=== PATIENT | male | born 1960 | race Caucasian/White ===

== ENCOUNTER → 2017-02-25 | Outpatient (REF) ==
[~2017-02-25] MED LIST: ASPI81TA83 OR; DEPA250T2 OR; LISI20TA5 OR; NASAL SPRAY; OMEP20TA7 OR; PLAV75TA2 OR; Zocor PO
--- NOTE | 2017-02-26 03:24 | REP ---
Clinical: Pain and disability. Technique: AP, lateral, bilateral oblique and sunrise views of the right knee. Findings: Early moderate osteoarthritic degenerative changes are appreciated. Findings include increase sclerosis to the tibial plateau and posterior margin of the patella with associated tibiofemoral and patellofemoral joint space narrowing. Spurring and cortical irregularity also identified involving the patella and femoral condyles as well as trace chondrocalcinosis in the tibiofemoral joint space. No acute fracture dislocation. No effusion. Impression: Moderate osteoarthritic degenerative changes. Signed by Virgilio Wayne MD 02/26/2017 03:15 A
== END ==
LOC: M SMT 11:44
PROVIDERS: ATTEND Internal Medicine
DX: Z02.71 Encounter for disability determination (principal)

== ENCOUNTER → 2017-09-16 | Outpatient (REF) | LOC: M SMT 10:20 | DX: M50.320 Other cervical disc degeneration, mid-cervical region, unspecified level (principal); M50.321 Other cervical disc degeneration at C4-C5 level; M50.322 Other cervical disc degeneration at C5-C6 level; M50.323 Other cervical disc degeneration at C6-C7 level; M25.78 Osteophyte, vertebrae ==

== ENCOUNTER 2019-04-29 12:11 | Observation (INO) | payer OTHER ==
[~2019-04-29] VITALS: Ht 185.4 cm; Wt 107.4 kg
[2019-04-29] MEDS ORDERED: NS 1,000 ML IV ONE (15:30)
[2019-04-29 15:35] LABS: HEMOGLOBIN 14.2 g/dl (13.5-17.5); MEAN CORPUSCULAR HGB CONC 33.8 g/dl (32.0-36.5); MEAN CORPUSCULAR VOLUME 82.7 fl (80.0-96.0); PLATELET COUNT, AUTOMATED 236 10^3/uL (150-450); RED BLOOD COUNT 5.08 10^6/uL (4.30-6.10); WHITE BLOOD COUNT 11.5 10^3/uL (4.0-10.0)
[2019-04-29] MEDS ORDERED: POTASSIUM CHLORIDE 10 MEQ SR TABLET PO ONE (16:00)
[2019-04-29] MEDS ORDERED: oxyBUTYnin 5 MG TAB PO ONE (16:15)
[2019-04-29] MEDS ORDERED: CIPROFLOXACIN 400 MG in APPROPRIATE DILUENT 1 EA IV ONE (19:30)
--- NOTE | 2019-04-29 19:32 | HPEPDOC ---
[facility] Medical History & Physical Date of Admission Apr 29, 2019 Date of Service: Apr 29, 2019 Other Provider Jose Multani - BOB Attending Physician: EDILBERTO LITTLE MD History and Physical Time of service 10:30 PM CHIEF COMPLAINT: Difficulty urinating HISTORY OF PRESENT ILLNESS: Mr. Boucher is a 58-year-old male with a history of BPH; he has been having difficulties urinating the sensation of having to urinate that is "off and on" with fluctuation in the strength of the stream of urine. He has been seeing his providers at the in [facility] and was started on tamsulosin and had a Rainey was placed. The Rainey was very uncomfortable and causing chafing so he asked for the rainey to be removed 2 days ago. Since then been having severe abdominal pain and difficulties urinating. He is scheduled to see a urologist in May. Today, he was on his way to [place] but stopped here at [facility] because he had severe abdominal pain and distention. The patient denied having nausea. In addition to abdominal pain he had a bout of diarrhea yesterday, but denies having back pain, fevers or chills. Per discussion with the provider in the ED, a, catheter placed and more than 1 L of urine was drained. Dr. Mayo a urologist food preparation worker was consulted and he recommended recommended admission. He received IV fluids in the ED. REVIEW OF SYSTEMS: 12 point review of systems negative except as listed in HPI PAST MEDICAL/SURGICAL HISTORY: 1. Transverse myelitis of the cervical spine 2. Diabetes with neuropathy 3. TIAs. 4. BPH 5. Chronic hypertension. 6. GERD 7. Transaminitis likely due to fatty liver. 8. Plaque psoriasis SOCIAL HISTORY: Former Smoker FAMILY HISTORY: Cancer ALLERGIES: Please see below. HOME MEDICATIONS: Please see below. PHYSICAL EXAMINATION: VITAL SIGNS: See below. GENERAL APPEARANCE: Well-nourished, well-developed, not in apparent distress HEENT: Normocephalic, atraumatic, mucous members moist and pink CARDIOVASCULAR: Regular rate and rhythm, no murmurs, rubs or gallops, radial pulses are intact, no lower extremity edema LUNGS: Clear to auscultation bilaterally on room air ABDOMEN: Abdomen is soft and nontender on palpation, there is no CVA tenderness MUSCULOSKELETAL: Range of motion is intact in all 4 extremities INTEGUMENT: He is slightly flushed, but not diaphoretic NEUROLOGICAL: Cranial nerves II-12 are grossly intact, speech is not dysarthric PSYCHIATRIC: Alert and oriented to person, place and time, able to understand and follow commands LABORATORY DATA: See below. IMAGING: N/A MICROBIOLOGY: Please see below. ASSESSMENT: Mr. Boucher is a 58-year-old male with a past medical history of BPH, diabetes with neuropathy, TIAs, chronic hypertension, and GERD who will be admitted for management of obstructive uropathy and sepsis secondary to UTI. . PLAN: 1 Sepsis 2/2 UTI SIRS criteria include HR 116 / WBC 11.5 / RR 24 lactic acid 2.6 Qsofa Score = 1 = not high risk UA reviewed Plan: admit to PCU / Sepsis protocol w repeat lactic acid / c/w Ciprofloxacin / f/u blood cx, UA w Cx / f/u renal panel / Zofan for n/v 2. Electrolyte Disturbances likely 2/2 Obstructive Uropathy Plan: c/w rainey from ED and lidocaine cream for rainey related discomfort / Urology Consult / tamsulosin / replete K / f/u repeat K and Mag / 3 Hypertensive Urgency Uncontrolled BP partially due to pain Plan: resume home meds / PRN Labetalol 4 Diabetes with neuropathy Plan: f/u accuchecks & A1C / hypoglycemia protocol / sliding scale / Levemir 45 units daily, 70-30 17 units in the morning and 30 units at night / hold metformin 5. Hx of TIAs. Plan: Continue with home meds 6. Plaque psoriasis. Plan: Continue with home meds DVT prophylaxis with Heparin Disposition pending clinical course Vital Signs Vital Signs Date Time Temp Pulse Resp B/P (MAP) Pulse Ox O2 Delivery O2 Flow Rate FiO2 04/29/19 13:25 04/29/19 12:11 98.7 116 24 98 Room Air Laboratory Data Labs 24H Laboratory Tests 2 04/29/19 13:09: Nucleated Red Blood Cells % (auto) 0.0, Urine Color STRAW, Urine Appearance CLEAR, Urine pH 7.0, Urine Specific [place] 1.001L, Urine Protein 1+H, Urine Glucose (UA) NEGATIVE, Urine Ketones NEGATIVE, Urine Blood 1+H, Urine Nitrite NEGATIVE, Urine Bilirubin NEGATIVE, Urine Urobilinogen 0.2, Urine Leukocyte Est erase 3+H, Urine WBC (Auto) 16H, Urine RBC (Auto) 0, Urine Hyaline Casts (Auto) 0, Urine Bacteria (Auto) NEGATIVE, Urine Squamous Epithelial Cells 0, Urine Sperm (Auto) 04/29/19 13:24: POC Glucose (Misc Panel) 185H, POC Sodium (Misc Panel) 128L, POC Potassium (Misc Panel) 2.6*L, POC Chloride (Misc Panel) 83L, POC Total CO2 (Misc Panel) 27.0, POC Blood Urea Nitrogen (Misc Panel 5L, POC Ionized Calcium (Misc Panel) 3.8L, POC Creatinine (Misc Panel) 0.8, POC Hematocrit (Misc Panel) 58.0H 04/29/19 15:42: Lactic Acid Level 2.5*H CBC/BMP Laboratory Tests 04/29/19 13:09 Red Blood Count 5.08, Mean Corpuscular Volume 82.7, Mean Corpuscular Hemoglobin 28.0, Mean Corpuscular Hemoglobin Concent 33.8, Red Cell Distribution Width 13.3 Microbiology Microbiology 04/29/19 Urine Culture, Received Pending Home Medications Scheduled Atorvastatin Calcium (Atorvastatin Calcium) 80 Mg Tablet, 80 MG PO DAILY Calcipotriene (Calcipotriene) 0.005% Cream..g., 1 APLCT TOP BID Chlorthalidone (Chlorthalidone) 25 Mg Tablet, 25 MG PO DAILY Insulin Detemir (Levemir) 100 Unit/1 Ml Vial, 45 UNITS SC DAILY Insulin NPH Hum/Reg Insulin Hm (Novolin 70-30 100 Unit/ml Vial) 100 Unit/1 Ml Vial, 30 UNITS SC QAM Insulin NPH Hum/Reg Insulin Hm (Novolin 70-30 100 Unit/ml Vial) 100 Unit/1 Ml Vial, 17 UNITS SC QPM Isotretinoin (Absorica) 25 Mg Capsule, 25 MG PO DAILY for PSORIASIS Levofloxacin (Levaquin) 500 Mg Tablet, 500 MG PO DAILY Magnesium Oxide (Magnesium Oxide) 400 Mg Tablet, 400 MG PO BID Metformin HCl (Metformin HCl) 1,000 Mg Tablet, 1,000 MG PO BID Metoprolol Tartrate (Metoprolol Tartrate) 25 Mg Tablet, 25 MG PO BID PHARMACY WAITING ON NEW RX FROM MD TO REFILL; HAS NOT FILLED FOR PT IN A WEEK, BUT IT IS STILL AN ACTIVE MEDICATION FOR PATIENT Omeprazole (Omeprazole) 20 Mg Capsule., 20 MG PO DAILY Potassium Chloride (Potassium Chloride) 10 Meq Tab.er.prt, 10 MEQ PO DAILY Tamsulosin HCl (Flomax) 0.4 Mg Capsule, 0.4 MG PO DAILY MIDDAY; HALF-HOUR AFTER LUNCH Scheduled PRN Ibuprofen (Ibuprofen) 200 Mg Tablet, 800 MG PO TID PRN for PAIN Allergies Coded Allergies: No Known Allergies (Verified , 12/04/11) A-FIB/CHADSVASC A-FIB History Current/History of A-Fib/PAF?: No Current PO Anticoag Therapy: No EDILBERTO LITTLE MD Apr 29, 2019 19:32
[2019-04-29] MEDS ORDERED: ONDANSETRON 4MG/2ML VIAL (J2405) IV PRN (19:45)
[2019-04-29] MEDS ORDERED: LABETALOL HCL 100 MG/20 ML VIAL IV PRN (19:45)
[2019-04-29] MEDS ORDERED: DEXTROSE 50% 50 ML SYRINGE IV PRN (19:45)
[2019-04-29] MEDS ORDERED: SODIUM CHLORIDE 0.9% 1000ML IV SCH (19:45)
[2019-04-29] MEDS ORDERED: METF10004 PO (19:51)
[2019-04-29] MEDS ORDERED: [UNRECOGNIZED DRUG - CODE] PO (19:51)
[2019-04-29] MEDS ORDERED: CHLO25TA PO (19:51)
[2019-04-29] MEDS ORDERED: OMEP-218 PO (19:51)
[2019-04-29] MEDS ORDERED: FLOM0.4C39 PO (19:51)
[2019-04-29] MEDS ORDERED: ATOR80TA59 PO (19:51)
[2019-04-29] MEDS ORDERED: METO25TA4 PO (19:51)
[2019-04-29] MEDS ORDERED: INSUDET SC (19:51)
[2019-04-29] MEDS ORDERED: ASPI81TA85 PO (19:51)
[2019-04-29] MEDS ORDERED: NOVO1INJ4 SC ×2 (19:51)
[2019-04-29] MEDS ORDERED: CALC0.009 TOP (19:51)
[2019-04-29] MEDS ORDERED: POTA10TA17 PO (19:51)
[2019-04-29] MEDS ORDERED: IBUP-1092 PO (20:07)
[2019-04-29] MEDS: HumaLOG INSULIN (NovoLOG) PER UNIT SC SCH (21:00)
[2019-04-29] MEDS ORDERED: KCL 10MEQ/100ML SWI (KRUN) 10 MEQ in APPROPRIATE DILUENT 1 EA IV ONE (21:00)
[2019-04-29 21:56] VITALS: BP 177/86
[2019-04-29] MEDS: HEPARIN SOD (PORCINE) 5000 UNITS/ML VIAL SC SCH (22:16)
[2019-04-29] MEDS ORDERED: diphenhydrAMINE 25 MG CAP PO ONE (22:45)
[2019-04-29] MEDS ORDERED: LIDOCAINE 2% JELLY 30 ML TOP PRN (22:45)
[2019-04-29 23:00] VITALS: BP 157/87
[2019-04-29 23:15] VITALS: BP 167/92
[2019-04-29 23:30] VITALS: BP 165/94
[2019-04-29 23:45] VITALS: BP 168/91
[2019-04-29 23:48] LABS: BLOOD UREA NITROGEN 7 MG/DL (7-18); CALCIUM LEVEL 8.6 MG/DL (8.8-10.2); CARBON DIOXIDE LEVEL 36 MEQ/L (21-32); CHLORIDE LEVEL 93 MEQ/L (98-107); CREATININE FOR GFR 1.04 MG/DL (0.70-1.30); GLOMERULAR FILTRATION RATE > 60.0 (>49); GLUCOSE, FASTING 176 MG/DL (70-100); POTASSIUM SERUM 2.9 MEQ/L (3.5-5.1); SODIUM LEVEL 134 MEQ/L (136-145)
[2019-04-30] VITALS (17 sets, daily range): BP systolic 137–171; BP diastolic 77–101
[2019-04-30] MEDS ORDERED: POTASSIUM CHLORIDE 10% LIQ 20 MEQ/15 ML UDC PO ONE (02:30)
[2019-04-30 05:10] LABS: HEMATOCRIT 40.5 % (42.0-52.0); HEMOGLOBIN 13.7 g/dl (13.5-17.5); MEAN CORPUSCULAR HEMOGLOBIN 27.3 pg (27.0-33.0); MEAN CORPUSCULAR HGB CONC 33.8 g/dl (32.0-36.5); MEAN CORPUSCULAR VOLUME 80.8 fl (80.0-96.0); PLATELET COUNT, AUTOMATED 266 10^3/uL (150-450); RED BLOOD COUNT 5.01 10^6/uL (4.30-6.10); WHITE BLOOD COUNT 12.7 10^3/uL (4.0-10.0)
[2019-04-30] MEDS: HEPARIN SOD (PORCINE) 5000 UNITS/ML VIAL SC SCH ×3 (05:18→21:47)
[2019-04-30] MEDS: IBUPROFEN 800 MG TAB PO PRN (05:18)
[2019-04-30 05:27] LABS: BLOOD UREA NITROGEN 6 MG/DL (7-18); CARBON DIOXIDE LEVEL 35 MEQ/L (21-32); CHLORIDE LEVEL 93 MEQ/L (98-107); CREATININE FOR GFR 1.05 MG/DL (0.70-1.30); GLOMERULAR FILTRATION RATE > 60.0 (>49); GLUCOSE, FASTING 199 MG/DL (70-100); MAGNESIUM LEVEL 1.4 MG/DL (1.8-2.4); SODIUM LEVEL 135 MEQ/L (136-145)
[2019-04-30] MEDS ORDERED: ISOTRETINOIN PO SCH (09:00)
[2019-04-30] MEDS: ATORVASTATIN 20 MG TAB PO SCH (09:45)
[2019-04-30] MEDS: PANTOPRAZOLE 40MG TAB (PROTONIX) PO SCH (09:45)
[2019-04-30] MEDS: LEVEMIR (INSULIN DETEMIR) 1 UNITS/0.01ML SC SCH (09:45)
[2019-04-30] MEDS: METOPROLOL TART 25 MG TABLET PO SCH ×2 (09:46→21:48)
[2019-04-30] MEDS: CHLORTHALIDONE 25 MG TAB PO SCH (09:46)
[2019-04-30] MEDS: CALCIPOTRIENE CREAM 0.005% 60GM TOP SCH ×2 (09:47→21:49)
[2019-04-30] MEDS: HumaLOG INSULIN (NovoLOG) PER UNIT SC SCH ×4 (09:47→21:00)
[2019-04-30] MEDS: HumuLIN (NovoLIN)70/30 INSULIN INJ PER UNIT SC SCH (09:48)
--- NOTE | 2019-04-30 11:18 | IPNPDOC ---
Subjective Date Seen The patient was seen on 04/30/19. Subjective Chief Complaint/HPI feels much better. Offers no new complaints at present time lying down in bed. Family at bedside General: Denies: ROS Unobtainable, Chills, Night Sweats, Fatigue, Malaise, Normal Appetite, Other Symptoms Constitutional: Denies: Chills, Fever, Malaise, Night Sweats, Weakness, Fatigue, Weight Loss, Lethargy, Other Eyes: Denies: Pain, Vision change, Conjunctivae inflammation, Eyelid inflammation, Redness, Other ENT: Denies: Head Aches, Ear Pain, Dysphagia, Sinus Congestion, Post Nasal Drip, Sore Throat, Epistaxis, Other Symptoms Skin: Denies: Rash, Lesions, Jaundice, Bruising, Itching, Dry, Breakdown, Nail Changes, Other Pulmonary: Denies: Dyspnea, Cough, Pleuritic Chest Pain, Other Symptoms Cardiovascular: Denies: Chest Pain, Palpitations, Orthopnea, Paroxysmal Noc. Dyspnea, Edema, Lt Headedness, Other Symptoms Gastrointestinal: Denies: Nausea, Vomiting, Abdominal Pain, Diarrhea, Constipation, Melena, Hematochezia, Other Symptoms Genitourinary: Denies: Dysuria, Frequency, Incontinence, Hematuria, Retention, Other Symptoms Hematologic: Denies: Bruising, Bleeding Excessively, Petecchia, Purpura, Enlarged Lymph Nodes, Other Hematologic Endocrine: Denies: Polydipsia, Polyphagia, Polyuria, Heat Intolerance, Cold Intolerance, Other Endocrine Sx Musculoskeletal: Denies: Neck Pain, Back Pain, Shoulder Pain, Arm Pain, Hand Pain, Leg Pain, Foot Pain, Joint Pain, Muscle Pain, Spasms, Other Symptoms Neurological: Denies: Weakness, Numbness, Incoordination, Change in speech, Confusion, Seizures, Other Symptoms Psych: Denies: Mood Normal, Anxiety, Depression, Memory Issues, Thoughts of Self Harm, Anger, Thoughts of Harming Other, Other Psych Objective Physical Examination General Exam: Positive: Alert, Cooperative Eye Exam: Positive: PERRLA, Conjunctiva & lids normal ENT Exam: Positive: Atraumatic Neck Exam: Positive: Supple Chest Exam: Positive: Clear to auscultation, Normal air movement Heart Exam: Positive: Rate Normal, Normal S1, Normal S2 Abdomen Exam: Positive: Normal bowel sounds, Soft Extremity Exam: Positive: Normal pulses Skin Exam: Positive: Nl turgor and temperature Neuro Exam: Positive: Strength at 5/5 X4 ext, Sensation Intact Assessment /Plan Problems (1) UTI (urinary tract infection) Problem Text: Mr. Boucher is a 58-year-old male with a history of BPH he has been having difficulties urinating the sensation of having to urinate that is "off and on" with fluctuation in the strength of the stream of urine. He has been seeing his providers at the in [facility] and was started on tamsulosin and a Crain was placed. The Crain was very uncomfortable and causing chafing so he asked for the Crain to be removed 2 days ago. Since then been having severe abdominal pain and difficulties urinating. He is scheduled to see a urologist in May. Today, he was on his way to [place] but stopped here at [facility] because he had severe abdominal pain and distention. The patient denied having nausea. In addition to abdominal pain he had a bout of diarrhea yesterday, but denies having back pain, fevers or chills. Per discussion with the provider in the ED, a, catheter placed and more than 1 L of urine was drained. Dr. Mayo a urologist party plan sales consultant was consulted and he recommended recommended admission. He received IV fluids in the ED. Urology consultation is still pending Continue Crain Continue Cipro IV as per orders Urine cultures pending Further, as per urology's recommendations (2) Urinary retention Status: Acute Problem Text: Crain in place Further, as per urology recommendations (3) Hypokalemia Status: Acute Problem Text: Corrected . We'll repeat lab and take potassium as needed Plan/VTE VTE Prophylaxis Ordered?: Yes VS, I&O, 24H, Fishbone Vital Signs/I&O Vital Signs Date Time Temp Pulse Resp B/P (MAP) Pulse Ox O2 Delivery O2 Flow Rate FiO2 04/30/19 10:00 82 20 137/77 (97) 94 04/30/19 08:00 97.4 04/29/19 12:11 Room Air I&O- Last 24 Hours up to 6 AM 04/30/19 05:59 Intake Total 1700 ml Output Total 5200 ml Balance -3500 ml Laboratory Data 24H LABS Laboratory Tests 2 04/29/19 13:09: Nucleated Red Blood Cells % (auto) 0.0, Urine Color STRAW, Urine Appearance CLEAR, Urine pH 7.0, Urine Specific [place] 1.001L, Urine Protein 1+H, Urine Glucose (UA) NEGATIVE, Urine Ketones NEGATIVE, Urine Blood 1+H, Urine Nitrite NEGATIVE, Urine Bilirubin NEGATIVE, Urine Urobilinogen 0.2, Urine Leukocyte E sterase 3+H, Urine WBC (Auto) 16H, Urine RBC (Auto) 0, Urine Hyaline Casts (Auto) 0, Urine Bacteria (Auto) NEGATIVE, Urine Squamous Epithelial Cells 0, Urine Sperm (Auto) 04/29/19 13:24: POC Glucose (Misc Panel) 185H, POC Sodium (Misc Panel) 128L, POC Potassium (Misc Panel) 2.6*L, POC Chloride (Misc Panel) 83L, POC Total CO2 (Misc Panel) 27.0, POC Blood Urea Nitrogen (Misc Panel 5L, POC Ionized Calcium (Misc Panel) 3.8L, POC Creatinine (Misc Panel) 0.8, POC Hematocrit (Misc Panel) 58.0H 04/29/19 15:42: Lactic Acid Level 2.5*H 04/29/19 20:12: Lactic Acid Followup at 4 Hours 2.6*H 04/29/19 21:57: Bedside Glucose (Misc Panel) 226H 04/29/19 23:00: Anion Gap 5L, Glomerular Filtration Rate > 60.0, Lactic Acid Level 1.7, Blood Urea Nitrogen 7, Creatinine 1.04, Sodium Level 134L, Potassium Level 2.9*L, Chloride Level 93L, Carbon Dioxide Level 36H, Calcium Level 8.6L 04/30/19 04:44: Anion Gap 7L, Glomerular Filtration Rate > 60.0, Blood Urea Nitrogen 6L, Creatinine 1.05, Sodium Level 135L, Potassium Level 3.0L, Chloride Level 93L, Carbon Dioxide Level 35H, Calcium Level 9.0, Nucleated Red Blood Cells % (auto) 0.0, Estimated Mean Plasma Glucose 240H, Hemoglobin A1c 10.0, Magnesium Level 1.4L CBC/BMP Laboratory Tests 04/29/19 13:09 Red Blood Count 5.08, Mean Corpuscular Volume 82.7, Mean Corpuscular Hemoglobin 28.0, Mean Corpuscular Hemoglobin Concent 33.8, Red Cell Distribution Width 13.3 04/29/19 23:00 Calcium Level 8.6 L 04/30/19 04:44 Red Blood Count 5.01, Mean Corpuscular Volume 80.8, Mean Corpuscular Hemoglobin 27.3, Mean Corpuscular Hemoglobin Concent 33.8, Red Cell Distribution Width 13.7, Calcium Level 9.0 Microbiology Microbiology 04/29/19 Blood Culture, Received Pending 04/29/19 Urine Culture, Received Pending PATRICIA HAIR MD Apr 30, 2019 11:18
[2019-04-30] MEDS ORDERED: POTASSIUM CHLORIDE 10 MEQ SR TABLET PO ONE (12:00)
[2019-04-30] MEDS ORDERED: MAG SULF 1GM/100ML (MAG RUN) 1 GM in APPROPRIATE DILUENT 1 EA IV ONE (12:00)
--- NOTE | 2019-04-30 16:17 | ECGEPIP ---
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
--- NOTE | 2019-04-30 16:23 | SMCUROLCON ---
Urology Consultation General Date of Consultation 04/30/19 Reason For Consultation This patient is seen for Sepsis; Uti. History of Present Illness The patient is a 58-year-old male with a past medical history significant for BPH and history of urinary retention. Mr. Boucher reports that his urinary symptoms first started in the last year. He reports that he was down in [place] and started having what sounds like obstructive urinary symptoms typical of BPH. He reports that he was started on tamsulosin at that time and that he did notice some possible mild improvement in his urinary symptoms. However as time went on he did not think the medication was having much effect and so he discontinued it. [facility] and his obstructive urinary symptoms worsened significantly. Eventually he went into enoch urinary retention and went to the [facility] where an indwelling Rainey catheter was placed. He was started back on tamsulosin. He was instructed to follow up in the circumflex dysuria urology clinic that was given an appointment several months later. He reports that he was not tolerating the indwelling catheter well. He went back to the [facility] several days ago the day prior to his scheduled appointment. He reports that they filled his bladder through the catheter and removed the catheter. He reports that he was able to void and that a postvoid residual check demonstrated he had emptied out more than 80% of urine from his bladder. He reports that he was sent home without a Rainey catheter. Unfortunately in the days that followed he reports that his urine stream became weaker and he eventually went back into enoch urinary retention yesterday. He reports he could not make it to [place] given the severity of his symptoms. He came to the [place] emergency department where an indwelling Rainey catheter was placed in the emergency department with reported drainage of approximately 1 L of urine. Laboratory testing demonstrated hypokalemia as well as some other electrolyte abnormalities. He was admitted to the hospitalist service and has been receiving electrolyte repletion. Reports that over the last 24 hours he has generally felt really bad with the constitutional symptoms. He denies any other genitourinary concerns at this time. Medications Current Medications Current Medications Medications (Trade) Dose Ordered Sig/Micki Route PRN Reason Start Time Stop Time Status Last Admin Dose Admin Atorvastatin Calcium (Lipitor) 80 mg DAILY PO 04/30/19 09:00 04/30/19 09:45 Calcipotriene (Dovonex 0.005%) APPLY TO AFFECTED AREA BID TOP 04/30/19 09:00 04/30/19 09:47 Chlorthalidone (Hygroton) 25 mg DAILY PO 04/30/19 09:00 04/30/19 09:46 Ciprofloxacin 400 mg/IV Miscellaneous Supplies 200 ml @ 200 mls/hr Q24H IV 04/30/19 21:00 Dextrose (Dextrose 50%) 25 ml ASDIRECTED PRN IV SEE LABEL COMMENTS 04/29/19 19:45 Heparin Sodium (Porcine) (Heparin) 5,000 units Q8H SC 04/29/19 22:00 04/30/19 14:25 Home Med (Med Rec Complete!) ASDIRECTED XX 04/29/19 20:15 04/29/19 20:15 DC Ibuprofen (Advil) 800 mg TID PRN PO PAIN 04/30/19 04:45 04/30/19 05:18 Insulin Detemir (Levemir Insulin) 45 units DAILY NE 04/30/19 09:00 04/30/19 09:45 Insulin Human Isoph/Insulin Regular (HumuLIN 70/30 INSULIN) 17 units DAILY@1730 NE 04/30/19 17:30 Insulin Human Isoph/Insulin Regular (HumuLIN 70/30 INSULIN) 30 units DAILY@0730 NE 04/30/19 07:30 04/30/19 09:48 Insulin Human Lispro (HumaLOG INSULIN) See Protocol Table AC NE 04/30/19 07:30 04/30/19 12:32 Insulin Human Lispro (HumaLOG INSULIN) See Protocol Table QHS NE 04/29/19 21:00 Labetalol HCl (Normodyne, Trandate) 10 mg DAILY PRN IV SBP >160 04/29/19 19:45 Lidocaine HCl (Lidocaine 2% Jelly) 1 dose Q8HP PRN TOP rainey related discomfort 04/29/19 22:45 04/30/19 03:32 Metoprolol Tartrate (Lopressor) 25 mg BID PO 04/30/19 09:00 04/30/19 09:46 Miscellaneous (Unresolved Patient Own Med Order) SEE LABEL COMMENTS DAILY XX 04/30/19 09:00 Ondansetron HCl (ZOFRAN INJection) 8 mg Q4HP PRN IV NAUSEA OR VOMITING 04/29/19 19:45 Pantoprazole Sodium (Protonix) 40 mg DAILY PO 04/30/19 09:00 04/30/19 09:45 Patient Own Medication (Patient'S Own Med) 1 CAPSULE DAILY PO 04/30/19 09:00 04/30/19 10:05 DC Sodium Chloride (Nacl 0.9%) 3,000 ml BOLUS IV 04/29/19 19:45 04/29/19 19:58 DC Tamsulosin HCl (Flomax) 0.4 mg QHS PO 04/30/19 21:00 Allergies Allergies: Coded Allergies: No Known Allergies (Verified , 12/04/11) Review of Systems General: Reports: Malaise, Normal Appetite Constitutional: Denies: Fever, Chills, Sweats, Weakness, Malaise Eyes: Denies: Pain, Vision change ENT: Denies: Head Aches, Sore Throat, Epistaxis Skin: Denies: Rash, Lesions, Breakdown, Nail Changes Pulmonary: Denies: Dyspnea, Cough Cardiovascular: Denies Chest Pain, Denies Palpitations Gastrointestinal: Denies: Nausea, Vomiting, Abdominal Pain Genitourinary: Reports: Retention Hematologic: Denies: Bruising, Bleeding Excessively Endocrine: Denies: Polydipsia, Polyphagia, Polyuria Musculoskeletal: Denies: Neck Pain, Back Pain Neurological: Denies: Weakness, Numbness, Incoordination, Change in Speech Psych: Reports: Mood Normal; Denies: Anxiety, Depression Physical Examination General Exam: Alert, No Acute Distress EYE EXAM: PERRLA, Conjunctiva & lids normal, EOMI; No: Sclera icteric ENT EXAM: Atraumatic, Mucous membr. moist/pink, Pharynx Normal Neck Exam: Supple; No: JVD, thyromegaly Chest Exam: Clear to auscultation, Normal air movement Heart Exam: Rate Normal, Regular Rhythm, Normal S1, Normal S2; No: Murmurs, Rubs Abdomen Exam: Normal Bowel Sounds, Soft; No: Tenderness, Hepatospenomegaly Male Exam: Normal Genital Exam Male Exam Indwelling 16 hebrew rainey catheter draining clear yellow urine Extremity Exam: Normal Pulses; No: Clubbing, Cyanosis, Edema Skin Exam: Nl turgor and temperature; No: Rash, Breakdown Neuro Exam: Normal Gait, Normal Speech, Cranial Nerves 3-12 NL, Reflexes 2+ Psych Exam: Mental status NL, Mood NL, Oriented x 3 Vital Signs/I&O Vital Signs Date Time Temp Pulse Resp B/P (MAP) Pulse Ox O2 Delivery O2 Flow Rate FiO2 04/30/19 14:35 97.7 82 20 138/82 (100) 95 04/29/19 12:11 Room Air I&O- Last 24 Hours up to 6 AM 04/30/19 06:00 Intake Total 1850 ml Output Total 5500 ml Balance -3650 ml Laboratory Data 24H Labs Laboratory Tests 2 04/29/19 20:12: Lactic Acid Followup at 4 Hours 2.6*H 04/29/19 21:57: Bedside Glucose (Misc Panel) 226H 04/29/19 23:00: Anion Gap 5L, Glomerular Filtration Rate > 60.0, Lactic Acid Level 1.7, Blood Urea Nitrogen 7, Creatinine 1.04, Sodium Level 134L, Potassium Level 2.9*L, Chloride Level 93L, Carbon Dioxide Level 36H, Calcium Level 8.6L 04/30/19 04:44: Anion Gap 7L, Glomerular Filtration Rate > 60.0, Blood Urea Nitrogen 6L, Creatinine 1.05, Sodium Level 135L, Potassium Level 3.0L, Chloride Level 93L, Carbon Dioxide Level 35H, Calcium Level 9.0, Nucleated Red Blood Cells % (auto) 0.0, Estimated Mean Plasma Glucose 240H, Hemoglobin A1c 10.0, Magnesium Level 1.4L 04/30/19 12:22: Bedside Glucose (Misc Panel) 163H CBC/BMP Laboratory Tests 04/29/19 23:00 Calcium Level 8.6 L 04/30/19 04:44 Calcium Level 9.0, Red Blood Count 5.01, Mean Corpuscular Volume 80.8, Mean Corpuscular Hemoglobin 27.3, Mean Corpuscular Hemoglobin Concent 33.8, Red Cell Distribution Width 13.7 Microbiology Microbiology 04/29/19 Blood Culture, Received Pending 04/29/19 Urine Culture, Received Pending Assessment Second episode of acute urinary retention secondary to benign prostatic hypertrophy Plan #1. Patient should certainly be sent home with the indwelling Rainey catheter in place. #2. Patient should continue taking tamsulosin 0.4 mg by mouth at bedtime. #3. Discussed with patient the option of adding on a 5 alpha reductase inhibitor medication. Counseled patient that this may help alleviate his urinary symptoms and allow him to void better and possibly avoid any surgical procedure. However counseled that these medications typically take at least a few months and sometimes up to 6 months to have any effect on symptoms. The patient noted that he really would prefer to avoid additional medications and would likely rather proceed with some form of surgical intervention. #4. Patient should be scheduled to follow-up in [facility] urology clinic in the next week or 2 to discuss surgical options for BPH. JORDYN FIGUEROA MD Apr 30, 2019 16:22
[2019-04-30] MEDS ORDERED: HumuLIN (NovoLIN)70/30 INSULIN INJ PER UNIT SC SCH (17:30)
[2019-04-30] MEDS ORDERED: CIPROFLOXACIN 400 MG in APPROPRIATE DILUENT 1 EA IV SCH (21:00)
[2019-04-30] MEDS ORDERED: TAMSULOSIN 0.4 MG CAP PO SCH (21:00)
[2019-04-30] MEDS ORDERED: diphenhydrAMINE INJ 50MG/ML VIAL (J1200) IM ONE (22:15)
[2019-05-01] MEDS ORDERED: zolPIDEM TARTRATE 5 MG TAB PO ONE (01:30)
[2019-05-01 02:00] VITALS: BP 163/92
[2019-05-01] MEDS: HEPARIN SOD (PORCINE) 5000 UNITS/ML VIAL SC SCH (05:57)
[2019-05-01 06:00] VITALS: BP 167/102
[2019-05-01] MEDS: HumaLOG INSULIN (NovoLOG) PER UNIT SC SCH (08:05)
[2019-05-01] MEDS: HumuLIN (NovoLIN)70/30 INSULIN INJ PER UNIT SC SCH (08:06)
[2019-05-01] MEDS: LEVEMIR (INSULIN DETEMIR) 1 UNITS/0.01ML SC SCH (08:06)
[2019-05-01] MEDS: PANTOPRAZOLE 40MG TAB (PROTONIX) PO SCH (08:07)
[2019-05-01] MEDS: ATORVASTATIN 20 MG TAB PO SCH (08:07)
[2019-05-01] MEDS: CHLORTHALIDONE 25 MG TAB PO SCH (08:07)
[2019-05-01 08:08] VITALS: BP 166/104
[2019-05-01] MEDS: METOPROLOL TART 25 MG TABLET PO SCH (08:08)
[2019-05-01] MEDS: IBUPROFEN 800 MG TAB PO PRN (08:09)
[2019-05-01] MEDS: CALCIPOTRIENE CREAM 0.005% 60GM TOP SCH (08:12)
[2019-05-01] MEDS ORDERED: MAGNESIUM OXIDE 400 MG TAB (MAG-OX) PO SCH (09:00)
[2019-05-01] MEDS ORDERED: LEVA1TAB2 PO (09:34)
[2019-05-01] MEDS ORDERED: MAG400TA PO (09:34)
[2019-05-01 09:45] VITALS: BP 152/94
[2019-05-01] MEDS ORDERED: POTASSIUM CHLORIDE 10 MEQ SR TABLET PO ONE (10:00)
--- NOTE | 2019-05-01 12:27 | DS.PDOC ---
Discharge Summary General Date of Admission Apr 29, 2019 at 12:12 Date of Discharge 05/01/19 Discharge Summary PROCEDURES PERFORMED DURING STAY: None. ADMITTING DIAGNOSES: 1. Obstructive uropathy, UTI, hypertension and emergency, diabetes with peripheral neuropathy. DISCHARGE DIAGNOSES: 1. Obstetric the uropathy. #2. UTI. #3. Hypertension emergency. #4. Diabetes with peripheral neuropathy. COMPLICATIONS/CHIEF COMPLAINT: Sepsis; Uti. HISTORY OF PRESENT ILLNESS: Mr. Boucher is a 58-year-old male with a history of BPH he has been having difficulties urinating the sensation of having to urinate that is "off and on" with fluctuation in the strength of the stream of urine. He has been seeing his providers at the in [facility] and was started on tamsulosin and a Crain was placed. The Crain was very uncomfortable and causing chafing so he asked for the Crain to be removed 2 days ago. Since then been having severe abdominal pain and difficulties urinating. He is scheduled to see a urologist in May. Today, he was on his way to [place] but stopped here at [facility] because he had severe abdominal pain and distention. The patient denied having nausea. In addition to abdominal pain he had a bout of diarrhea yesterday, but denies having back pain, fevers or chills. Per discussion with the provider in the ED, a, catheter placed and more than 1 L of urine was drained. Dr. Mayo a urologist weatherization and housing inspector was consulted and he recommended recommended admission. He received IV fluids in the ED.. HOSPITAL COURSE: Patient was admitted with the diagnosis of obstructive uropathy. UTI. Patient had a Crain placement in ED with the drainage of 1 L of urine. Patient was seen by Dr. Mayo from urology and recommended to continue keep the Crain in treat patient for his UTI and emergent hypertension as once stable, he can be discharged home and follow-up as an outpatient with [facility] urology clinic in 2-3 days. Patient. Blood pressures under well control. He is asymptomatic and he will be discharged home today with the Crain catheter in place and follow with urology as an outpatient. DISCHARGE MEDICATIONS: Please see below. ALLERGIES: Please see below. PHYSICAL EXAMINATION ON DISCHARGE: VITAL SIGNS: Please see below. GENERAL: Normal HEENT: PERRLA NECK: Supple, supple CARDIOVASCULAR EXAMINATION:. S1, S2, regular RESPIRATORY EXAMINATION:, Clear to A&P ABDOMINAL EXAMINATION:. Benign EXTREMITIES:. No clubbing, cyanosis, edema SKIN:, Normal NEUROLOGICAL EXAMINATION:, Normal PSYCHIATRIC EXAMINATION:, Normal LABORATORY DATA: Please see below. IMAGING: None PROGNOSIS: Good ACTIVITY: As tolerated. DIET: As tolerated DISCHARGE PLAN: DC home with a Crain catheter inplace with leg bag DISPOSITION: . Home DISCHARGE INSTRUCTIONS: 1. Follow-up with urology clinic is in 2-3 days. ITEMS TO FOLLOWUP ON ON OUTPATIENT: 1. As above. DISCHARGE CONDITION: Stable. TIME SPENT ON DISCHARGE: 35 minutes. Vital Signs/I&Os Vital Signs Date Time Temp Pulse Resp B/P (MAP) Pulse Ox O2 Delivery O2 Flow Rate FiO2 05/01/19 09:45 96.6 77 16 152/94 (113) 92 04/29/19 12:11 Room Air I&O- Last 24 Hours up to 6 AM 05/01/19 06:00 Intake Total 1750 ml Output Total 2550 ml Balance -800 ml Laboratory Data Labs 24H Laboratory Tests 2 04/30/19 12:22: Bedside Glucose (Misc Panel) 163H 04/30/19 16:44: Bedside Glucose (Misc Panel) 177H 04/30/19 21:20: Bedside Glucose (Misc Panel) 167H 05/01/19 06:11: Bedside Glucose (Misc Panel) 156H 05/01/19 11:43: Bedside Glucose (Misc Panel) 211H FSBS Laboratory Tests Test 04/30/19 12:22 04/30/19 16:44 04/30/19 21:20 05/01/19 06:11 Range/Units Bedside Glucose (Misc Panel) 163 177 167 156 80-115 MG/DL Test 05/01/19 11:43 Range/Units Bedside Glucose (Misc Panel) 211 80-115 MG/DL Microbiology Microbiology 04/29/19 Blood Culture - Preliminary, Resulted No growth after 24 hours . All specim... 04/29/19 Urine Culture - Final, Complete Enterobacter Asburiae Discharge Medications Scheduled Atorvastatin Calcium (Atorvastatin Calcium) 80 Mg Tablet, 80 MG PO DAILY, (Reported) Calcipotriene (Calcipotriene) 0.005% Cream..g., 1 APLCT TOP BID, (Reported) Chlorthalidone (Chlorthalidone) 25 Mg Tablet, 25 MG PO DAILY, (Reported) Insulin Detemir (Levemir) 100 Unit/1 Ml Vial, 45 UNITS SC DAILY, (Reported) Insulin NPH Hum/Reg Insulin Hm (Novolin 70-30 100 Unit/ml Vial) 100 Unit/1 Ml Vial, 30 UNITS SC QAM, (Reported) Insulin NPH Hum/Reg Insulin Hm (Novolin 70-30 100 Unit/ml Vial) 100 Unit/1 Ml Vial, 17 UNITS SC QPM, (Reported) Isotretinoin (Absorica) 25 Mg Capsule, 25 MG PO DAILY for PSORIASIS, (Reported) Levofloxacin (Levaquin) 500 Mg Tablet, 500 MG PO DAILY Magnesium Oxide (Magnesium Oxide) 400 Mg Tablet, 400 MG PO BID Metformin HCl (Metformin HCl) 1,000 Mg Tablet, 1,000 MG PO BID, (Reported) Metoprolol Tartrate (Metoprolol Tartrate) 25 Mg Tablet, 25 MG PO BID, (Reported) PHARMACY WAITING ON NEW RX FROM TO REFILL; HAS NOT FILLED FOR PT IN A WEEK, BUT IT IS STILL AN ACTIVE MEDICATION FOR PATIENT Omeprazole (Omeprazole) 20 Mg Capsule.dr, 20 MG PO DAILY, (Reported) Potassium Chloride (Potassium Chloride) 10 Meq Tab.er.prt, 10 MEQ PO DAILY, (Reported) Tamsulosin HCl (Flomax) 0.4 Mg Capsule, 0.4 MG PO DAILY, (Reported) MIDDAY; HALF-HOUR AFTER LUNCH Scheduled PRN Ibuprofen (Ibuprofen) 200 Mg Tablet, 800 MG PO TID PRN for PAIN, (Reported) Allergies Coded Allergies: No Known Allergies (Verified , 12/04/11) PATRICIA HAIR MD May 01, 2019 12:27
== END 2019-05-01 12:40 | disposition home or self-care (01) ==
LOC: M ED 12:11 → M ED INP 12:12 → M ICU 21:44 → M MSPAV 04-30 14:35
PROVIDERS: ADMIT Internal Medicine; ATTEND Internal Medicine
DX: N13.9 Obstructive and reflux uropathy, unspecified (principal); N39.0 Urinary tract infection, site not specified; I16.0 Hypertensive urgency; E11.40 Type 2 diabetes mellitus with diabetic neuropathy, unspecified; Z79.84 Long term (current) use of oral hypoglycemic drugs; Z79.4 Long term (current) use of insulin; N40.0 Benign prostatic hyperplasia without lower urinary tract symptoms; Z79.899 Other long term (current) drug therapy; Z86.73 Personal history of transient ischemic attack (TIA), and cerebral infarction without residual deficits; K21.9 Gastro-esophageal reflux disease without esophagitis; I10 Essential (primary) hypertension; R74.0 Nonspecific elevation of levels of transaminase and lactic acid dehydrogenase [LDH]; K76.0 Fatty (change of) liver, not elsewhere classified; L40.0 Psoriasis vulgaris; Z87.891 Personal history of nicotine dependence
CPT/HCPCS: 36415; 80047; 80048; 81001; 83036; 83605; 83735; 85027; 87040; 87088; 87186; 93005; 96361; 96365; 96372; 96375; 99284; G0378; J0744; J1200; J3475

== ENCOUNTER 2022-06-22 12:37 | Emergency (ER) | payer OTHER ==
[~2022-06-22] VITALS: Ht 185.4 cm; Wt 113.2 kg
[~2022-06-22 12:37] MED LIST changes: +ASPI81TA86 PO; +ATOR80TA59 PO; +CALC0.009 TOP; +CHLO25TA PO; +FLOM0.4C39 PO; +IBUP-1764 PO; +INSUDET SC; +LEVA1TAB2 PO; +MAGN400T35 PO; +METF10004 PO; +METO25TA4 PO; +NOVO1INJ4 SC; +OMEP-173 PO; +POTA-150 PO; +[UNRECOGNIZED DRUG - CODE] PO
[2022-06-22] MEDS ORDERED: NOVOINJ SC (13:03)
[2022-06-22] MEDS ORDERED: CLOP75TA2 PO (13:03)
[2022-06-22 13:12] LABS: BASO # 0.1 10^3/uL (0.0-0.2); BASO % 0.9 % (0.0-1.0); EOS # 0.3 10^3/uL (0.0-0.5); HEMATOCRIT 45.2 % (42.0-52.0); HEMOGLOBIN 14.4 g/dl (13.5-17.5); LYMPH # 1.7 10^3/uL (1.5-5.0); LYMPH % 18.4 % (24.0-44.0); MEAN CORPUSCULAR HEMOGLOBIN 25.5 pg (27.0-33.0); MEAN CORPUSCULAR HGB CONC 31.9 g/dl (32.0-36.5); MEAN CORPUSCULAR VOLUME 80.1 fl (80.0-96.0); MONO # 0.8 10^3/uL (0.0-0.8); NEUTROPHILS # 6.5 10^3/uL (1.5-8.5); NEUTROPHILS % 69.4 % (36.0-66.0); PLATELET COUNT, AUTOMATED 235 10^3/uL (150-450); RED BLOOD COUNT 5.64 10^6/uL (4.30-6.10); WHITE BLOOD COUNT 9.3 10^3/uL (4.0-10.0)
[2022-06-22] MEDS ORDERED: BUME0.5T2 PO (13:13)
[2022-06-22] MEDS ORDERED: METOPROLOL TART 25 MG TABLET PO ONE (13:15)
[2022-06-22 13:29] LABS: INR 0.96; PROTHROMBIN TIME 13.2 SECONDS (12.7-14.5)
[2022-06-22 13:30] LABS: PARTIAL THROMBOPLASTIN TIME 30.7 SECONDS (25.9-37.0)
[2022-06-22 13:50] LABS: CK-MB VALUE MASS 1.9 NG/ML (<3.6); MB/CK RELATIVE INDEX 2.53 (< OR =4)
[2022-06-22 13:55] LABS: ALBUMIN 3.4 GM/DL (3.2-5.2); BILIRUBIN,DIRECT 0.3 MG/DL (0.0-0.2); BILIRUBIN,TOTAL 1.1 MG/DL (0.2-1.0); CALCIUM LEVEL 9.1 MG/DL (8.8-10.2); CREATININE FOR GFR 1.35 MG/DL (0.70-1.30); FREE T4 1.05 NG/DL (0.76-1.46); GLOMERULAR FILTRATION RATE 56.8 (>49); MAGNESIUM LEVEL 1.5 MG/DL (1.8-2.4); POTASSIUM SERUM 3.9 MEQ/L (3.5-5.1); THYROID STIMULATING HORMONE 1.59 uIU/ML (0.358-3.740); TOTAL PROTEIN 7.4 GM/DL (6.4-8.2)
[2022-06-22] MEDS ORDERED: MAGNESIUM SULFATE 1GM/100ML D5W BAG (10MG/ML) As Ordered ONE (13:58)
[2022-06-22 13:59] VITALS: BP 149/101
[2022-06-22] MEDS ORDERED: MAG SULF 1GM/100ML (MAG RUN) 1 GM in IV 1 EA IV ONE (14:00)
[2022-06-22 15:03] LABS: CK-MB VALUE MASS 1.9 NG/ML (<3.6); MB/CK RELATIVE INDEX 2.79 (< OR =4)
[2022-06-22] MEDS ORDERED: METO50TA7 PO (15:50)
[2022-06-22] MEDS ORDERED: SLOWTAB2 PO (15:50)
[2022-06-22 16:01] VITALS: BP 151/93
== END 2022-06-22 16:08 | disposition home or self-care (01) ==
LOC: M ED 12:37 → EDBD 12:37 → M ED 16:08
DX: E83.42 Hypomagnesemia (principal); I47.20 Ventricular tachycardia, unspecified; I44.4 Left anterior fascicular block; E11.40 Type 2 diabetes mellitus with diabetic neuropathy, unspecified; I10 Essential (primary) hypertension; E78.5 Hyperlipidemia, unspecified; I25.2 Old myocardial infarction; F10.10 Alcohol abuse, uncomplicated; Z86.79 Personal history of other diseases of the circulatory system; Z95.5 Presence of coronary angioplasty implant and graft; Z86.73 Personal history of transient ischemic attack (TIA), and cerebral infarction without residual deficits; Z87.891 Personal history of nicotine dependence; Z79.4 Long term (current) use of insulin; Z79.899 Other long term (current) drug therapy
CPT/HCPCS: 71045; 80048; 80076; 82550; 82553; 83690; 83735; 83880; 84439; 84443; 84484; 85025; 85610; 85730; 93005; 93041; 94760; 96365; 99285; J3475

== ENCOUNTER 2023-01-09 14:10 | Emergency (ER) | payer OTHER ==
[~2023-01-09] VITALS: Ht 185.4 cm; Wt 119.0 kg
[~2023-01-09 14:10] MED LIST changes: +BUME0.5T2 PO; +CLOP75TA2 PO; +METO50TA7 PO; +NOVOINJ SC; +SLOWTAB2 PO
[2023-01-09] MEDS ORDERED: AMIODARONE HCL 360 MG in IV 1 EA IV SCH ×2 (14:15→20:30)
[2023-01-09 15:08] LABS: BASO # 0.1 10^3/uL (0.0-0.2); BASO % 0.6 % (0.0-1.0); EOS # 0.1 10^3/uL (0.0-0.5); HEMATOCRIT 46.6 % (42.0-52.0); HEMOGLOBIN 14.5 g/dl (13.5-17.5); LYMPH # 1.7 10^3/uL (1.5-5.0); LYMPH % 13.6 % (24.0-44.0); MEAN CORPUSCULAR HEMOGLOBIN 22.7 pg (27.0-33.0); MEAN CORPUSCULAR HGB CONC 31.1 g/dl (32.0-36.5); MONO % 8.1 % (2.0-8.0); NEUTROPHILS # 9.5 10^3/uL (1.5-8.5); NEUTROPHILS % 76.2 % (36.0-66.0); PLATELET COUNT, AUTOMATED 298 10^3/uL (150-450); RED BLOOD COUNT 6.38 10^6/uL (4.30-6.10); WHITE BLOOD COUNT 12.4 10^3/uL (4.0-10.0)
[2023-01-09 15:42] LABS: ALBUMIN 3.7 G/DL (3.2-5.2); ALKALINE PHOSPHATASE 105 U/L (46-116); ALT/SGPT 29 U/L (7.0-40); AST/SGOT 25 U/L (<34); BILIRUBIN,DIRECT 0.2 MG/DL (<0.4); BLOOD UREA NITROGEN 22 MG/DL (9-23); CALCIUM LEVEL 9.2 MG/DL (8.3-10.6); CARBON DIOXIDE LEVEL 25 MMOL/L (20-31); CHLORIDE LEVEL 98 MMOL/L (98-107); CREATININE FOR GFR 1.28 MG/DL (0.70-1.30); GLOMERULAR FILTRATION RATE > 60.0 (>49); GLUCOSE, FASTING 127 MG/DL (74-106); MAGNESIUM LEVEL 1.7 MG/DL (1.8-2.4); POTASSIUM SERUM 4.3 MMOL/L (3.5-5.1); SODIUM LEVEL 134 MMOL/L (136-145); TOTAL PROTEIN 7.8 G/DL (5.7-8.2)
[2023-01-09 15:43] LABS: FREE T4 1.11 NG/DL (0.89-1.76); THYROID STIMULATING HORMONE 2.163 uIU/ML (0.55-4.78)
[2023-01-09] MEDS ORDERED: MAG SULF 1GM/100ML (MAG RUN) 1 GM in IV 1 EA IV ONE (15:50)
[2023-01-09 16:31] LABS: INR 0.92; PROTHROMBIN TIME 12.6 SECONDS (12.5-14.5)
[2023-01-09 16:32] LABS: PARTIAL THROMBOPLASTIN TIME 31.3 SECONDS (24.8-34.2)
[2023-01-09 16:55] VITALS: BP 107/62
== END 2023-01-09 17:11 | disposition short-term general hospital (02) ==
LOC: M ED 14:10
DX: I47.20 Ventricular tachycardia, unspecified (principal); I44.4 Left anterior fascicular block; E78.5 Hyperlipidemia, unspecified; E11.9 Type 2 diabetes mellitus without complications; I10 Essential (primary) hypertension; Z79.02 Long term (current) use of antithrombotics/antiplatelets; Z79.4 Long term (current) use of insulin; Z79.83 Long term (current) use of bisphosphonates; Z79.899 Other long term (current) drug therapy
CPT/HCPCS: 71045; 80048; 80076; 83735; 83880; 84439; 84443; 85025; 85610; 85730; 93005; 93041; 94760; 96374; 96375; 99291; J0283; J3475

== ENCOUNTER → 2023-02-06 | Outpatient (CLI) | payer MEDICARE, OTHER ==
[2023-02-06 12:45] VITALS: BP 142/74
== END ==
LOC: M IRPRO 09:48
PROVIDERS: ATTEND Thoracic Surgery (Cardiothoracic Vascular Surgery)
DX: J90 Pleural effusion, not elsewhere classified (principal)

== ENCOUNTER 2023-02-20 14:55 | Emergency (ER) | payer MEDICARE ==
[~2023-02-20] VITALS: Ht 185.4 cm; Wt 114.7 kg
[2023-02-20 14:57] VITALS: TEMP 97.2
[2023-02-20] MEDS ORDERED: MAGN400T2 PO (15:40)
[2023-02-20] MEDS ORDERED: THIA100TA PO (15:40)
[2023-02-20] MEDS ORDERED: ECOT81TA5 PO (15:40)
[2023-02-20] MEDS ORDERED: ALBU6.7H6 INH (15:40)
[2023-02-20] MEDS ORDERED: SPIR1CAP INH (15:40)
[2023-02-20] MEDS ORDERED: B-12100021 PO (15:40)
[2023-02-20] MEDS ORDERED: SPIR50TA4 PO (15:40)
[2023-02-20] MEDS ORDERED: FLOM0.4C39 PO (15:40)
[2023-02-20] MEDS ORDERED: NESI25TA PO (15:40)
[2023-02-20] MEDS ORDERED: BUME2TAB3 PO (15:40)
[2023-02-20] MEDS ORDERED: AMIO200T49 PO (15:40)
[2023-02-20] MEDS ORDERED: INSUDET SC (15:40)
[2023-02-20 16:52] VITALS: O2SAT 96
[2023-02-20 17:19] VITALS: BP 137/82; O2SAT 95
== END 2023-02-20 17:30 | disposition home or self-care (01) ==
LOC: M ED 14:55
DX: R06.02 Shortness of breath (principal); J91.8 Pleural effusion in other conditions classified elsewhere; I10 Essential (primary) hypertension; E78.5 Hyperlipidemia, unspecified; N40.0 Benign prostatic hyperplasia without lower urinary tract symptoms; Z86.79 Personal history of other diseases of the circulatory system; Z87.891 Personal history of nicotine dependence; Z79.82 Long term (current) use of aspirin; Z79.899 Other long term (current) drug therapy

== ENCOUNTER → 2023-02-25 | Outpatient (CLI) | payer MEDICARE, OTHER ==
[~2023-02-25] MED LIST changes: +ALBU6.7H6 INH; +AMIO200T49 PO; +B-12100021 PO; +BUME2TAB3 PO; +ECOT81TA5 PO; +MAGN400T2 PO; +NESI25TA PO; +SPIR1CAP INH; +SPIR50TA4 PO; +THIA100TA PO
[2023-02-25 11:50] VITALS: TEMP 97.2
[2023-02-25 12:30] LABS: PROTHROMBIN TIME 13.4 SECONDS (12.5-14.5)
[2023-02-25 13:50] VITALS: BP 134/81; O2SAT 92
== END ==
LOC: M IRPRO 11:39
PROVIDERS: ATTEND Thoracic Surgery (Cardiothoracic Vascular Surgery)
DX: J90 Pleural effusion, not elsewhere classified (principal)

== ENCOUNTER → 2023-03-10 | Outpatient (CLI) | payer OTHER | LOC: M RAD 09:14 | PROVIDERS: ATTEND Internal Medicine Cardiovascular Disease | DX: I25.10 Atherosclerotic heart disease of native coronary artery without angina pectoris (principal); J90 Pleural effusion, not elsewhere classified ==

== ENCOUNTER 2024-05-06 08:13 | Day surgery (SDC) | payer MEDICARE, OTHER ==
[~2024-05-06] VITALS: Ht 185.4 cm; Wt 114.7 kg
[~2024-05-06 08:13] MED LIST changes: +CALC0.0017 TOP; -CALC0.009 TOP; +PROA1AER2 INH
[2024-05-06] MEDS ORDERED: LR 1,000 ML IV SCH ×2 (08:50→11:05)
[2024-05-06] MEDS ORDERED: GLUCOSE 4 GM CHEW PO PRN ×2 (09:15→11:15)
[2024-05-06] MEDS ORDERED: DEXTROSE 50% 50ML SYRINGE IV PRN ×2 (09:15→11:15)
[2024-05-06] MEDS ORDERED: GLUCAGON INJ 1MG VIAL SC PRN ×2 (09:15→11:15)
[2024-05-06] MEDS: INSULIN LISPRO (NovoLOG) PER UNIT SC PRN ×2 (09:19→11:28)
[2024-05-06] MEDS ORDERED: LIDOCAINE 2% 100MG/5ML SDV (FOR ANES.) As Ordered ONE (09:22)
[2024-05-06] MEDS ORDERED: fentaNYL 100 MCG/2 ML INJECTION As Ordered ONE (09:22)
[2024-05-06] MEDS ORDERED: ONDANSETRON 4MG 2ML VIAL As Ordered ONE (09:22)
[2024-05-06] MEDS ORDERED: propofoL 200 MG/20 ML VIAL As Ordered ONE (09:22)
[2024-05-06] MEDS ORDERED: MIDAZOLAM INJ 2MG/2ML VIAL As Ordered ONE (09:22)
[2024-05-06] MEDS ORDERED: ROCURONIUM BROMIDE 50MG/5ML VIAL As Ordered ONE (09:22)
[2024-05-06] MEDS ORDERED: KETOROLAC 60MG 2ML VIAL As Ordered ONE (09:29)
[2024-05-06] MEDS: OXYMETAZOLINE 0.05% NASAL SPRAY (AFRIN) As Ordered ONE (10:10)
[2024-05-06] MEDS ORDERED: ACETAMINOPHEN 1000MG 100ML IV BAG As Ordered ONE (10:22)
[2024-05-06] MEDS ORDERED: dexmedeTOMIDine (4MCG/ML)200MCG/50ML BTL (PRECEDEX) As Ordered ONE (10:23)
[2024-05-06] MEDS: LIDOCAINE W/EPINEPHRINE 1% 20ML VIAL As Ordered ONE (10:50)
[2024-05-06] MEDS ORDERED: SUGAMMADEX SODIUM 500 MG/5 ML VIAL (BRIDION) As Ordered ONE (10:55)
[2024-05-06] MEDS ORDERED: MEPERIDINE 25 MG/ML 1ML VIAL IV PRN (11:05)
[2024-05-06] MEDS ORDERED: ONDANSETRON 4MG 2ML VIAL IV PRN (11:05)
[2024-05-06] MEDS ORDERED: fentaNYL 100 MCG/2 ML INJECTION IV PRN (11:05)
[2024-05-06] MEDS ORDERED: METOCLOPRAMIDE INJ 10MG/2ML VIAL IV PRN (11:05)
[2024-05-06] MEDS ORDERED: diphenhydrAMINE 50MG/ML VIAL IV PRN (11:05)
[2024-05-06] MEDS: oxyCODONE 5MG TAB PO PRN (11:27)
[2024-05-06 12:12] VITALS: BP 140/75; TEMP 97.9; O2SAT 95
== END 2024-05-06 12:14 | disposition home or self-care (01) ==
LOC: M SDC 08:13
PROVIDERS: ATTEND Dentist Oral and Maxillofacial Surgery
DX: K02.9 Dental caries, unspecified (principal); I25.10 Atherosclerotic heart disease of native coronary artery without angina pectoris; I10 Essential (primary) hypertension; E78.5 Hyperlipidemia, unspecified; E11.9 Type 2 diabetes mellitus without complications; K21.9 Gastro-esophageal reflux disease without esophagitis; J45.909 Unspecified asthma, uncomplicated; Z86.73 Personal history of transient ischemic attack (TIA), and cerebral infarction without residual deficits; Z79.02 Long term (current) use of antithrombotics/antiplatelets; Z79.899 Other long term (current) drug therapy; Z79.4 Long term (current) use of insulin; N40.0 Benign prostatic hyperplasia without lower urinary tract symptoms
CPT/HCPCS: 88300; D7210; D9223; J0131; J1100; J1815; J1885; J2250; J2405; J3010

== ENCOUNTER → 2024-05-17 | Outpatient (CLI) | payer OTHER, MEDICARE | LOC: M RAD 14:03 | PROVIDERS: ATTEND Nurse Practitioner Acute Care | DX: I50.22 Chronic systolic (congestive) heart failure (principal); I65.22 Occlusion and stenosis of left carotid artery ==

== ENCOUNTER → 2024-10-27 | Outpatient (CLI) | payer MEDICARE, OTHER | LOC: M OUTALCOH 10:22 | PROVIDERS: ATTEND Psychiatry & Neurology Psychiatry | DX: Z03.89 Encounter for observation for other suspected diseases and conditions ruled out (principal) ==

== ENCOUNTER → 2025-03-28 | Outpatient (CLI) | payer OTHER, MEDICARE ==
[~2025-03-28] MED LIST changes: +ACET650T61 PO; -AMIO200T49 PO; +AMIO200T54 PO; -FLOM0.4C39 PO; +TAMS-18 PO; +TRAM50TA2 PO
== END ==
LOC: M RAD 06:59
PROVIDERS: ATTEND Nurse Practitioner Family
DX: Z01.89 Encounter for other specified special examinations (principal); E22.1 Hyperprolactinemia